=== PATIENT | female | born 1990 | race Caucasian/White ===

== ENCOUNTER 2021-05-10 21:40 | Observation (INO) | payer MEDICAID ==
[2021-05-10] MEDS ORDERED: TERBUTALINE SULFATE 1 MG/ML 1ML VIAL SC ONE (22:36)
[2021-05-10] MEDS ORDERED: ceFAZolin 2 GM in D5W 5% 100 ML IV ONE (22:45)
[2021-05-10] MEDS ORDERED: LACTATED RINGER'S 1,000 ML IV ONE (22:45)
[2021-05-10] MEDS ORDERED: LACTATED RINGER'S 1,000 ML IV SCH (22:45)
[2021-05-10] MEDS ORDERED: BETAMETHASONE ACET (30mg/5ml) 5ml Vial 6mg/ml IM ONE (22:45)
[2021-05-10] MEDS: TERBUTALINE SULFATE 1 MG/ML 1ML VIAL SC SCH (22:52)
[2021-05-10] MEDS ORDERED: ceFAZolin 1GM/50ML 50 ML IV ONE (22:52)
[2021-05-11] MEDS ORDERED: PREN-96 PO (01:25)
[2021-05-11 01:53] LABS: Urine Bacteria FEW /hpf (None Seen); Urine Blood Negative /uL (Negative); Urine Mucus FEW (None Seen); Urine Specific Gravity 1.026 (1.001-1.035); Urine WBC 1 /hpf (0 - 5)
[2021-05-11] MEDS: TERBUTALINE SULFATE 1 MG/ML 1ML VIAL SC SCH (02:28)
== END 2021-05-11 01:52 | disposition home or self-care (01) ==
LOC: LDRP 21:40
PROVIDERS: ADMIT Obstetrics & Gynecology; ATTEND Obstetrics & Gynecology
DX: O60.03 Preterm labor without delivery, third trimester (principal); O26.893 Other specified pregnancy related conditions, third trimester; R51.9 Headache, unspecified; R60.0 Localized edema; Z3A.31 31 weeks gestation of pregnancy; Z91.040 Latex allergy status
CPT/HCPCS: 59025; 76805; 81001; 81002; 87210; 94760; 96372; G0378; J0690; J0702; J7060

== ENCOUNTER 2025-01-25 21:38 | Emergency (ER) | payer OTHER, MEDICAID ==
[~2025-01-25] VITALS: Ht 165.1 cm; Wt 75.0 kg
[~2025-01-25 21:38] MED LIST: PREN-96 PO
[2025-01-25] MEDS: TETANUS-DIPTH-ACEL PERTUSSIS 0.5ML SYR Tdap IM ONE (21:57)
[2025-01-25] MEDS: HYDROcodone-ACET 10/325MG TAB PO ONE (21:57)
[2025-01-25] MEDS: SILVER SULFADIAZINE 1 % TOPICAL CREAM 50GM TOP ONE (21:58)
[2025-01-25] MEDS ORDERED: ACET500T58 PO (22:19)
[2025-01-25] MEDS ORDERED: IBUP-1455 PO (22:19)
[2025-01-25] MEDS ORDERED: SILV1CRE82 TOP (22:19)
--- NOTE | 2025-01-25 22:20 | ED.PDOC ---
Burn HPI HPI Comments This patient is a 34-year-old female who arrives the ED today for evaluation of right palm burn that occurred approximately 1/2 hour prior to arrival. Patient states she was working with a water pressure unit when she touched the exhaust on it with her right palm. Patient arrives with a mild dressing on the right palm. Patient's tetanus is not up-to-date. Patient denies any fever nausea or vomiting. No blood loss. Chief Complaint: Hale Time Seen by MD: 21:40 Reviewed notes: Nurses Notes Allergies: Coded Allergies: Codeine (Verified Allergy, Unknown, 01/25/25) Latex (Verified Allergy, Unknown, 01/25/25) Menthol (Verified Allergy, Unknown, 01/25/25) Prochlorperazine (Verified Allergy, Unknown, 01/25/25) Promethazine (Verified Allergy, Unknown, 01/25/25) Home Meds Reported Medications Vit W/ Ferrous Fumara ( One Daily) Daily Tab, 1 TAB PO DAILY, #90 TAB 3 Refills 05/11/21 Information Source: Patient Mode of Arrival: Ambulatory Severity: Mild Timing: Minutes Duration: Since onset Prehospital treatment: None Type of Burn: Thermal Occured in: Open Space % Burned: Other (Right palm) Tetanus: >5 Years Location: Hand Burn Quality: Painful Associated Sign and Symptoms: None Past Medical History PAST MEDICAL HISTORY: Denies Surgical History: Denies all surgeries PHYSICIST SOLID EARTH History: No Pertinent PHYSICIST SOLID EARTH History Family History Family History: Reviewed,noncontributory to illness, No family hx of Cancer, No family hx of DM, No family hx of Heart maría, No family hx of HTN, No family hx ofKidney maría, No family hx of Liver maría, No family hx of Lung maría, No family hx of Stroke Social History Smoker: Non-Smoker Alcohol: Denies ETOH Use Drugs: Denies Drug Use Lives In: Home Constitutional: denies: chills, diaphoresis, fatigue, fever, malaise, sweats, weakness, others EENTM: denies: blurred vision, double vision, ear bleeding, ear discharge, ear drainage, ear pain, ear ringing, eye pain, eye redness, hearing loss, mouth pain, mouth swelling, nasal discharge, nose bleeding, nose congestion, nose pain, photophobia, tearing, throat pain, throat swelling, voice changes, others Respiratory: denies: cough, hemoptysis, orthopnea, SOB at rest, shortness of breath, SOB with excertion, stridor, wheezing, others Cardiovascular: denies: chest pain, dizzy spells, diaphoresis, Dyspnea on exertion, edema, irregular heart beat, left arm pain, lightheadedness, palpitations, PND, syncope, others Gastrointestinal: denies: abdomen distended, abdominal pain, blood streaked bowels, constipated, diarrhea, dysphagia, difficulty swallowing, hematemesis, melena, nausea, poor appetite, poor fluid intake, rectal bleeding, rectal pain, vomiting, others Genitourinary: denies: abnormal vagina bleeding, burning, dyspareunia, dysuria, flank pain, frequency, hematuria, incontinence, pain, , vagina discharge, urgency, others Neurological: denies: dizziness, fainting, headache, left sided numbness, left sided weakness, numbness, paresthesia, pre-existing deficit, right sided numbness, right sided weakness, seizure, speech problems, tingling, tremors, weakness, others Musculoskeletal: denies: back pain, gout, joint pain, joint swelling, muscle pain, muscle stiffness, neck pain, others Integumetry: reports: others (Burn to right palm); denies: bruises, change in color, change in hair/nails, dryness, laceration, lesions, lumps, rash, wounds Allergic/Immunocompromised: denies: Difficulty Healing, Frequent Infections, Hives, Itching, others Hematologic/Lymphatic: denies: anemia, blood clots, easy bleeding, easy bruising, swollen glands, others Endocrine: denies: excessive hunger, excessive sweating, excessive thirst, excessive urination, flushing, intolerance to cold, intolerance to heat, unexplained weight gain, unexplained weight loss, others Psychiatric: denies: anxiety, bipolar disorder, depression, hopeless, panic disorder, schizophrenia, sleepless, suicidal, others Physical Exam General Appearance: Moderate Distress (Due to pain related to right palm burn), Normal HEENT: Normal ENT Inspection, Pharynx Normal, TMs Normal Neck: Full Range of Motion, Non-Tender, Normal, Normal Inspection Respiratory: Chest Non-Tender, Lungs Clear, No Accessory Muscle Use, No Respiratory Distress, Normal Breath Sounds Cardiovascular: No Edema, No JVD, No Murmur, No Gallop, Normal Peripheral Pulses, Regular Rate/Rhythm Breast Exam: Deferred Gastrointestinal: No Organomegaly, Non Tender, No Pulsatile Mass, Normal Bowel Sounds, Soft Genitalia: Deferred Pelvic: Deferred Rectal: Deferred Extremities: Other (First-degree burn noted to right palm. No definitive blister formation at time of evaluation. No charge tissue. Burn is not circumferential.) Neurologic: Alert, No Motor Deficits, Normal Affect, Normal Mood, No Sensory Deficits Cerebellar Function: Normal Reflexes: Normal Skin: Dry, Normal Color, Warm Lymphatic: No Adenopathy Was a procedure done? Was a procedure done?: No Differentail Diagnosis (BRN) Differential Diagnosis: Other (Thermal burn) X-Ray, Labs, Meds, VS Current Medications Medications (Trade) Dose Ordered Sig/Angie Route Start Time Stop Time Status Last Admin Silver Sulfadiazine (Silvadene) 1 applic ONCE ONCE TOP 01/25/25 21:45 01/25/25 21:46 DC 01/25/25 21:58 Diphtheria/ Tetanus/Acell Pertussis (Boostrix T-Dap) 0.5 ml ONCE ONCE IM 01/25/25 21:45 01/25/25 21:46 DC 01/25/25 21:57 Acetaminophen/ Hydrocodone Bitart (Hurley 10/325MG Tab) 1 tab ONCE ONCE PO 01/25/25 21:45 01/25/25 21:46 DC 01/25/25 21:57 X-Ray, Labs, Meds, VS Comment Discussed with the patient's injury with her. Patient was treated with Silvadene and a hand wrapped. Advised patient she needs to returned to the facility tomorrow for definitive re-evaluation of right palm burn. Time of 1ST Reevaluation: 22:16 Reevaluation 1ST: Improved Consultation: PCP Patient Education/Counseling: Diagnosis, Treatment Family Education/Counseling: Diagnosis, Treatment Departure 1 Departure Time of Disposition: 22:17 Impression: Primary Impression: Burn, hand, first degree Disposition: HOME / SELF CARE / HOMELESS Condition: Stable Additional Instructions: Advised patient utilize topical antibiotics daily with daily dressing changes. Patient should return to ED or primary care provider tomorrow for re-evaluation. Pain medication as needed. e-Prescriptions Acetaminophen (Acetaminophen) 500 Mg Tab 500 MG PO Q4HP PRN, #30 TAB Prov: BAYRON LARSEN PAC 01/25/25 Ibuprofen Micronized (Ibuprofen) 800 Mg Tab 800 MG PO Q8HP PRN, #20 TAB Prov: BAYRON LARSEN PAC 01/25/25 Silver Sulfadiazine (Silvadene) 1 % Cre 1 APPLIC TOP DAILY, #50 GRAMS Prov: BAYRON LARSEN PAC 01/25/25 Discharged With: Self, Friend Critical Care Note Critical Care Time?: No Stability Stability form required: No Heart Score Heart Score: Heart Score Response (Comments) Value History N/A 0 EKG N/A 0 Age N/A 0 Risk Factors N/A 0 Troponin N/A 0 Total 0 BAYRON LARSEN PAC Jan 25, 2025 22:19
[2025-01-25 22:49] VITALS: BP 127/77; PULSE 92; RESP 18; TEMP 98; O2SAT 99
== END 2025-01-25 22:55 | disposition home or self-care (01) ==
LOC: ER 21:38
DX: T23.151A Burn of first degree of right palm, initial encounter (principal); Z88.5 Allergy status to narcotic agent; Z88.8 Allergy status to other drugs, medicaments and biological substances; Z91.040 Latex allergy status; X11.8XXA Contact with other hot tap-water, initial encounter; Y93.89 Activity, other specified; Y92.89 Other specified places as the place of occurrence of the external cause; Y99.8 Other external cause status
CPT/HCPCS: 16000; 90471; 90715